=== PATIENT | female | born 1945 | race Caucasian/White ===

== ENCOUNTER 2019-07-13 08:58 | Day surgery (SDC) | payer OTHER, MEDICARE ==
--- NOTE | 2019-07-13 08:54 | EKG ---
Test Date: 2019-07-13 Test Time: 08:29:16 Mobile Home Set Up Person: CARIN MEASUREMENT RESULTS: Intervals: Rate: 64 [place]: 194 QRSD: 142 QT: 462 QTc: 476 [place]: P: 48 AZ: 194 QRS: 5 T: 142 INTERPRETIVE STATEMENTS: Normal sinus rhythm Left bundle branch block Abnormal ECG Compared to ECG 11/10/1992 07:49:00 Left bundle branch block is now present Electronically Signed On 07-13-19 08:53:40 CDT by Cornelius Murphy
[2019-07-13] MEDS ORDERED: CEFAZOLIN/SWI 1gm 1 GM/10 ML SYR ONE (09:23)
[2019-07-13] MEDS ORDERED: Ringers Lactate 1,000 ML IV ONE (09:23)
--- NOTE | 2019-07-13 09:25 | RAD REPORT ---
EXAM DESCRIPTION: Twan Perales (2 Views)07/13/2019 8:59 am CLINICAL HISTORY: Preop to removed mass from left arm and right knee COMPARISON: 2016 FINDINGS: The lungs appear clear of acute infiltrate. The heart is mildly enlarged. The aorta is tortuous/ectatic IMPRESSION: No acute abnormalities displayed
[2019-07-13 09:41] LABS: Absolute Lymphocytes (CBC) 1.4 K/uL (0.7-4.9); Hematocrit 39.8 % (36.0-45.0); Lymphocytes % 29.5 % (15.3-44.8); MPV 7.1 fL (7.6-11.3); RBC Red Blood Cell Count 4.41 M/uL (3.86-4.86)
[2019-07-13] MEDS ORDERED: MIDAZOLAM HCL 2 MG/2 ML INJ ONE (09:48)
[2019-07-13 09:49] LABS: Potassium 4.1 mmol/L (3.5-5.1)
[2019-07-13] MEDS ORDERED: LIDOCAINE 1% 20 ML MDV ONE (10:19)
[2019-07-13] MEDS ORDERED: BUPIVACAINE 0.5% PF 10 ML VIAL ONE (10:19)
[2019-07-13] MEDS ORDERED: FENTANYL CITR 100 MCG/2 ML ONE (10:21)
[2019-07-13] MEDS ORDERED: LIDOCAINE 2% MPF 5 ML VIAL ONE (10:21)
[2019-07-13] MEDS ORDERED: PROPOFOL 200 MG/20 ML VIAL IV ONE (10:21)
[2019-07-13] MEDS ORDERED: EPHEDRINE SULF 50 MG/ML VIAL ONE (11:42)
[2019-07-13 13:04] VITALS: TEMP 97.2
[2019-07-13 13:44] VITALS: BP 136/64; O2SAT 100
--- NOTE | 2019-07-13 21:20 | OP ---
Date of Procedure: 07/13/2019 Surgeon: Ramon España MD Bulk Plant Manager: MAKENZIE Woods. Preoperative Diagnosis: Left arm mass and right knee mass. Postoperative Diagnosis: Left arm mass and right knee mass. Procedures: 1.Wide excision of left arm mass 5 x 3 cm, with layered closure. Length of closure 5 cm. 2.Wide excision of right knee mass 3 x 1 cm with layered closure. Length of closure 3 cm. Estimated Blood Loss: Minimal. Specimens: Left arm mass and right knee mass. Findings: Margins free. Anesthesia: General. Complications: None. Disposition: Patient tolerated the procedure in stable condition and taken to Recovery in good gener al condition. Procedure In Detail: Patient was brought to the OR and placed in supine position. General anesthesi a was begun. Patient was prepped and draped in the usual sterile fashion. Marcaine 0.5% was infiltr ated locally. A 15-blade was used to make a 5 x 3 cm incision on the left arm starting a 2.5 cm pleo morphic raised lesion. Subcutaneous tissue was divided and entire mass was excised and sent to Patho logy after being labeled appropriately. Wound irrigated, bleeding controlled with cautery. Flaps cr eated with 3-0 chromic used for subcutaneous tissue and 4-0 nylon used to close the skin. Sterile dr essing was applied. Right knee 3 x 1 cm incision was made over this 0.7 size cm raised mass pleomorp hic in nature. Subcutaneous tissue was divided, entire mass was excised and labeled appropriately an d sent to Pathology for frozen section. Margins free on both places and then flaps created, 3-0 lunchroom operator mitchell used for subcutaneous tissue and 4-0 nylon used to close the skin. Sterile dressing was applied. Patient was awakened and taken to Recovery in good general condition. Discharge Note: Patient will go to Day Surgery, then home when stable. Disposition: Home. Condition: Stable. Discharge Instructions: Resume home medications and diet. Activity as tolerated. No heavy lifting. Remove outer dressing in 2 days. Shower. Keep wound clean and dry. Follow up in my office in 1 w enterprise. Call for appointment. Tylenol No. 3 one tablet p.o. q.4 p.r.n. pain. /MODL Voice ID: [id number] Report ID: [id number]
== END 2019-07-13 13:53 | disposition home or self-care (01) ==
LOC: OR 08:58
PROVIDERS: ATTEND Surgery
PROC: 0JBF0ZZ Excision of Left Upper Arm Subcutaneous Tissue and Fascia, Open Approach (ICD-10-PCS; principal; 2019-07-13 10:00)
PROC: 0JBN0ZZ Excision of Right Lower Leg Subcutaneous Tissue and Fascia, Open Approach (ICD-10-PCS; 2019-07-13 10:00)
DX: R22.32 Localized swelling, mass and lump, left upper limb (principal); R22.41 Localized swelling, mass and lump, right lower limb; L82.0 Inflamed seborrheic keratosis; L57.0 Actinic keratosis; L57.8 Other skin changes due to chronic exposure to nonionizing radiation; E07.9 Disorder of thyroid, unspecified; K21.9 Gastro-esophageal reflux disease without esophagitis; M19.90 Unspecified osteoarthritis, unspecified site; Z82.49 Family history of ischemic heart disease and other diseases of the circulatory system
CPT/HCPCS: 11406; 11403; 93005; 85025; 80048; 36415; 88331; 88332; 88305; 71046; J2704; J2250; J3010; J0690; J7120

== ENCOUNTER 2019-08-31 09:45 | Day surgery (SDC) | payer OTHER, MEDICARE ==
--- OUTSIDE RECORDS SUMMARY | 2019-08-31 09:49 | XMS REPORT ---
:1945 Author Organization e[employer] Care Team Providers Name Role Phone Nabil Serrano Provider Role Unavailable Allergies, Adverse Reactions, Alerts Substance Reaction Event Type N.K.D.A. 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 Medications Medication Code Code Instructions Start End Status Dosage System Date Date Simvastatin [facility] 99920946211 20 MG Oral Active not defined Levothyroxine [facility] 55848888027 25 MCG Oral Active not Sodium defined Restasis [facility] 95104274505 0.05 % Active not Ophthalmic defined Paroxetine HCl [facility] 33154840277 10 MG Oral Active not defined Pantoprazole [facility] 26558922834 40 MG Orally May 05, Active 1 tablet Sodium Once a day 2017 Ranitidine HCl in [facility] 0 May 05, Active not NaCl 2018 defined Results No Known Results Summary Purpose eClinicalWorks Submission
[2019-08-31] MEDS ORDERED: Zoledronic Acid/Mannitol/Water 5 MG/100 ML INFUS.BOT IV ONE (10:00)
[2019-08-31 11:50] VITALS: BP 132/57; TEMP 97.3; O2SAT 95
[2019-08-31 11:55] VITALS: BMI 27.4
== END 2019-08-31 11:36 | disposition home or self-care (01) ==
LOC: DS 09:45
PROVIDERS: ATTEND Internal Medicine
DX: M81.0 Age-related osteoporosis without current pathological fracture (principal); R13.10 Dysphagia, unspecified
CPT/HCPCS: 96365; J3489

== ENCOUNTER 2023-03-28 19:28 | Observation (INO) | payer OTHER, MEDICARE ==
--- OUTSIDE RECORDS SUMMARY | 2023-03-28 19:31 | XMS REPORT | Continuity of Care Document ---
:1945 Author Organization [facility] t Address [address] [place] [address] Care Team Providers Name Role Phone Wai Thompson MD Primary Care Physician Wai Thompson Attending Clinician Unavailable Wai Thompson Admitting Clinician Unavailable Payers Payer Name Policy Type Policy Number Effective Date Expiration Date Britni farah [place] [id number] [facility] MEDICARE MB [id number] [facility] NOVITAS - [facility] Problems Condition Condition Condition Status Onset Resolution Last Treating Co mments Source Name Details Category Date Date Treatment Clinician Date [id number] Status Problem Commo n 105 post total [facility] right knee - [facility] replacemen [facility] [id number] Primary Problem 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 Social History Social Habit Start Date Stop Date Quantity Comments Source History of Tobacco [facility] - Use [facility] Gender identity [facility] Sexual orientation Method [facility] Sex Assigned At [birth year] [facility] 00:00:00 00:00:00 Smoking Status Start Date Stop Date Source Tobacco smoking consumption Meth [facility] unknown Never Smoker [facility] Medications Ordered Filled Start Stop Current Ordering Indication Dosage Frequency Signature Comments Components Source Medication Medication Date Date Medication? Clinician (SIG) Name Name Ranitidine Ranitidine Yes Nabil not Common HCl in NaCl HCl in NaCl 05-05 Serrano defined Spirit 00:00: - [facility] Pantoprazol Pantoprazol Yes Nabil 1 tablet Common e Sodium e Sodium 05-05 Serrano [facility] 00:00: [facility] Levothyroxi Levothyroxi Yes Nabil not Common ne Sodium ne Sodium [facility] Sim[facility] Simvastatin Yes Nabil not Common Serrano defined [facility] Restasis Restasis Yes Nabil not Comm on Serrano [facility] Paroxetine Paroxetine Yes Nabil not Common HCl HCl Serrano defined [facility] Famotidine Famotidine Yes Nabil not Common Serrano defined [facility] Esomeprazol Esomeprazol Yes Nabil not Common e Magnesium e Magnesium Serrano defined [facility] Acetaminoph Acetaminoph Yes Nabil not Common en-Codeine en-Codeine Serrano defined Spirit #3 #3 [facility] Shingrix Shingrix Yes Nabil not Comm on Serrano defined [facility] Amoxicillin Amoxicillin Yes Nabil not Common Serrano defined [facility] Acetaminoph Acetaminoph No Acetaminop en-Codeine en-Codeine hen-Codein #3 #3 e #3 Levothyroxi Levothyroxi No Levothyrox ne Sodium ne Sodium ine Sodium 25 MCG 25 MCG 25 MCG Restasis Restasis No Restasis 0.05 % 0.05 % 0.05 % PARoxetine PARoxetine No PARoxetine HCl 10 MG HCl 10 MG HCl 10 MG Esomeprazol Esomeprazol No Esomeprazo e Magnesium e Magnesium le Magnesium Amoxicillin Amoxicillin No Amoxicilli n Simvastatin Simvastatin No Simvastati 20 MG 20 MG n 20 MG Famotidine Famotidine No Famotidine Pantoprazol Pantoprazol No 1{table QD Pantoprazo e Sodium 40 e Sodium 40 t} le Sodium MG MG 40 MG Ranitidine Ranitidine No Ranitidine HCl in NaCl HCl in NaCl HCl in NaCl Shingrix Shingrix No Shingrix Fish Oil Fish Oil No Fish Oil Shingrix Shingrix No Shingrix Pantoprazol Pantoprazol No 1{table QD Pantoprazo e Sodium 40 e Sodium 40 t} le Sodium MG MG 40 MG Esomeprazol Esomeprazol No Esomeprazo e Magnesium e Magnesium le Magnesium Amoxicillin Amoxicillin No Amoxicilli n Levothyroxi Levothyroxi No Levothyrox ne Sodium ne Sodium ine Sodium 25 MCG 25 MCG 25 MCG Magnesium Magnesium No Magnesium Famotidine Famotidine No Famotidine Ranitidine Ranitidine No Ranitidine HCl in NaCl HCl in NaCl HCl in NaCl Vitamin B12 Vitamin B12 No Vitamin B12 B Complete B Complete No B Complete PARoxetine PARoxetine No PARoxetine HCl 10 MG HCl 10 MG HCl 10 MG Probiotic Probiotic No Probiotic Simvastatin Simvastatin No Simvastati 20 MG 20 MG n 20 MG Restasis Restasis No Restasis 0.05 % 0.05 % 0.05 % Acetaminoph Acetaminoph No Acetaminop en-Codeine en-Codeine hen-Codein #3 #3 e #3 Calcium Calcium No Calcium Vital Signs Vital Name Observation Time Observation Value Comments Source height 2022-07-17 11:00:00 63 [in_i] [facility] weight 2022-07-17 11:00:00 160.3 [lb_av] [facility] temperature 2022-07-17 11:00:00 97.7 [degF] [facility] bmi 2022-07-17 11:00:00 28.39 kg/m2 [facility] blood pressure 2022-07-17 11:00:00 132 mm[Hg] [facility] - systolic [facility] blood pressure 2022-07-17 11:00:00 80 mm[Hg] [facility] - diastolic [facility] height 2021-06-29 14:00:00 63 [in_i] [facility] weight 2021-06-29 14:00:00 157.5 [lb_av] [facility] temperature 2021-06-29 14:00:00 97.3 [degF] [facility] - [facility] bmi 2021-06-29 14:00:00 27.9 kg/m2 [facility] - [facility] blood pressure 2021-06-29 14:00:00 128 mm[Hg] [facility] - systolic [facility] blood pressure 2021-06-29 14:00:00 80 mm[Hg] [facility] - diastolic [facility] Procedures This patient has no known procedures. Plan of Care Planned Activity Planned Date Details Comments Source Future Scheduled 2023-03-[address] [facility] Test 09:28:58 [code = INFLUENZA VACCINE] Future Scheduled 2023-03-11 Hepatitis C screening [facility] Test 09:28:58 (procedure) [code = [id number]] Future Scheduled 2023-03-11 SHINGLES VACCINES (1 Met [facility] Test 09:28:58 of 2) [code = SHINGLES VACCINES (1 of 2)] Future Scheduled 2023-03-11 65+ PNEUMOCOCCAL Methodi [facility] Test 09:28:58 VACCINE (1 - PCV) [code = 65+ PNEUMOCOCCAL VACCINE (1 - PCV)] Future Scheduled 2023-03-11 COVID-19 VACCINE (3 - [facility] Test 09:28:58 Moderna series) [code = COVID-19 VACCINE (3 - Moderna series)] Encounters Start End Encounter Admission Attending Care Care Encounter Source Date/Time Date/Time Type Type Clinicians Facility Department ID 2022-07-17 [facility] [id number] Common 11:22:[address] [facility] 2022-07-02 [facility] [id number] Common 09:59:[address] [facility] 2021-10-18 [facility] [id number] Common 14:12:50 Wai [id number] [facility] 2021-10-18 [facility] [id number] Common 13:58:10 Wai [id number] [facility] 2021-10-18 Outpatient Donna, [facility] ST[facility] [id number] Common 13:52:38 Wai [id number] [facility] 2021-10-18 Outpatient Donna, STLMLC STL[facility] [id number] Common 11:41:18 Wai [id number] [facility] 2022-07-17 2022-07-17 OFFICE STLMLC ST[facility]C [id number] Co mmon 00:00:00 00:00:00 VISIT Spirit ESTAB PT - [facility] LEVEL 4 [facility] 2021-08-14 2021-08-14 Outpatient DONNA, [facility] [id number] 00:00:00 00:00:00 WAI 241 Method i 2021-08-14 2021-08-14 Outpatient DONNA, [facility] [id number] 00:00:00 00:00:00 WAI 243 Method i 2021-06-29 2021-06-29 OFFICE STLMLC STL[facility]C [id number] Co mmon 00:00:00 00:00:00 VISIT Spirit ESTAB PT - [facility] LEVEL 4 [facility] 2020-05-03 2020-05-03 Outpatient [facility] [id number] Common 08:00:00 08:00:00 [facility] 2019-05-04 2019-05-04 Out[facility] [id number] Common 08:00:00 08:00:00 t [facility] Sp[facility] and [facility] 2018-05-05 2018-05-05 Out[facility] [id number] Common 08:00:00 08:00:00 t [facility] Sp[facility] t and [facility] Results This patient has no known results.
[2023-03-28] MEDS ORDERED: NA CHLORIDE 0.9% 1,000 ML ONE (20:24)
[2023-03-28 20:27] LABS: Absolute Lymphocytes (CBC) 2.9 K/uL (0.7-4.9); Hematocrit 40.1 % (36.0-45.0); Lymphocytes % 40.1 % (15.3-44.8); MCV 90.9 fL (80-100); MPV 6.5 fL (7.6-11.3); RBC Red Blood Cell Count 4.42 M/uL (3.86-4.86)
[2023-03-28 20:37] LABS: Troponin High Sensitivity 8.8 pg/mL (<58.9)
[2023-03-28 20:38] LABS: ALT/SGPT 16 U/L (13-56); AST/SGOT 15 U/L (15-37); Albumin 3.2 g/dL (3.4-5.0); Alkaline Phosphatase 70 U/L (45-117); Bilirubin Total 0.2 mg/dL (0.2-1.0); Protein, Total 6.2 g/dL (6.4-8.2)
[2023-03-28 20:39] LABS: Bilirubin Direct < 0.1 mg/dL (0-0.2); Bilirubin Indirect, Calculated ND mg/dL (0.2-0.8)
--- NOTE | 2023-03-28 21:25 | RAD REPORT ---
EXAM DESCRIPTION: Twan Single View03/28/2023 8:47 pm CLINICAL HISTORY: CHEST PAIN COMPARISON: Chest Pa And Lat (2 Views) dated 07/13/2019; Chest Pa And Lat (2 Views) dated 03/22/2016; CHEST PA AND LAT 2 VIEW dated 12/31/2013 TECHNIQUE: Portable AP view of the chest. FINDINGS: The lungs are clear. No pneumothorax or effusion. The cardiomediastinal contours are unch anged, with stable mediastinal prominence, likely aortic tortuosity. IMPRESSION: No acute cardiopulmonary process. Stable mediastinal prominence.
--- NOTE | 2023-03-28 22:13 | RAD REPORT ---
EXAM DESCRIPTION: CT - Angio Aorta For Dissection - 03/28/2023 9:47 pm CLINICAL HISTORY: atypical chest pain COMPARISON: Chest Single View dated 03/28/2023 TECHNIQUE: Dynamically enhanced 3 mm thick images of the chest, abdomen, and upper pelvis were obtai dorothy during administration of approximately 125mL Isovue 370 IV contrast. Sagittal and coronal reconst ructions as well as maximal intensity projection reconstruction were generated and reviewed per an [facility] angiography protocol. All CT scans are performed using dose optimization technique as appropriate and may include automated exposure control or mA/KV adjustment according to patient size. FINDINGS: Aorta is normal in diameter with no dissection or other acute aortic findings. Tortuosity of the thoracic aorta, and fusiform aneurysmal dilation of the ascending aorta measuring 4.3 centimet er in greatest caliber, both contribute to the appearance of mediastinal prominence on recent radiogr aph. Mild atherosclerotic calcifications throughout the abdominal aorta. Reconstruction images show n o other significant findings. Pulmonary arteries are normal as well. No infiltrate in the lung parenchyma. Medial right basal pleural based 2.3 x 2.0 centimeter nodule. N o pleural thickening, pleural effusion or pneumothorax. No abnormal mediastinal or hilar mass or lymphadenopathy seen. No chest wall mass or abnormal axillar y lymphadenopathy. Celiac, SMA and renal arteries show no suspicious findings. Solid abdominal viscera and bowel show no significant findings. No mass or abnormal lymphadenopathy. Status post cholecystectomy. Colonic dive rticulosis. Long segment wall thickening throughout the sigmoid colon, may relate to nondistention, o r sequelae of prior attacks of diverticulitis. IMPRESSION: No acute abnormalities on CT angiogram of the aorta. Tortuosity of the thoracic aorta, and fusiform aneurysmal dilation of the ascending aorta, up to 4.3 centimeter in greatest caliber. Right lower lobe pleural-based medial 2.3 centimeter nodule. This deserves short-term interval follow up CT at 3 months, or additional evaluation by PET-CT or soft tissue sampling, per Fleischner societ y 2017 criteria. Colonic diverticulosis and long segment wall thickening throughout the sigmoid colon, may relate to n ondistention or sequelae of prior text of diverticulitis.
--- NOTE | 2023-03-28 22:57 | ER ---
Nurse's Notes [facility] Name: Alexandra Daniel Age: 77 yrs Sex: Female : 1945 Arrival Date: 03/28/2023 Time: 19:28 Bed 26 Private MD: Diagnosis: Angina pectoris, unspecified Presentation: 03/28 19:44 Chief complaint: Patient states: sharp chest pain 30 min [employer]. never felt before. slowly lg3 easing up but has not gone away yes. pain radiates entire chest and back. complaints of headache. Coronavirus screen: Client denies travel out of the [place] in the last 14 days. At this time, the client does not indicate any symptoms associated with coronavirus-19. Ebola Screen: No symptoms or risks identified at this time. Initial Sepsis Screen: Does the patient meet any 2 criteria? No. Patient's initial sepsis screen is negative. Does the patient have a suspected source of infection? No. Patient's initial sepsis screen is negative. Risk Assessment: Do you want to hurt yourself or someone else? Patient reports no desire to harm self or others. Onset of symptoms was March 28, 2023. 19:44 Method Of Arrival: Wheelchair lg3 19:44 Acuity: CARLEEN 3 lg3 Triage Assessment: 19:47 General: Appears in no apparent distress. comfortable, Behavior is calm, cooperative. lg3 Pain: Complains of pain in chest Pain radiates to back. EENT: No deficits noted. No signs and/or symptoms were reported regarding the EENT system. Neuro: No deficits noted. Benites Agitation-Sedation Scale (RASS): 0 - Alert and Calm Level of Consciousness is awake, alert, obeys commands, Oriented to person, place, time, situation. Cardiovascular: Reports chest pain, lightheadedness, palpitations, Capillary refill < 3 seconds Clubbing of nail beds is absent JVD is absent Patient's skin is warm and dry. Respiratory: No deficits noted. Airway is patent Respiratory effort is even, unlabored, Respiratory pattern is regular, symmetrical. GI: No deficits noted. No signs and/or symptoms were reported involving the gastrointestinal system. : No deficits noted. No signs and/or symptoms were reported regarding the genitourinary system. Derm: No deficits noted. No signs and/or symptoms reported regarding the dermatologic system. Skin is intact, is healthy with good turgor, Skin is dry, Skin is normal, Skin temperature is warm. Musculoskeletal: No deficits noted. No signs and/or symptoms reported regarding the musculoskeletal system. Circulation, motion, and sensation intact. Range of motion: intact in all extremities. Historical: - Allergies: 19:47 No Known Allergies; lg3 - PMHx: 19:47 high cholestrol; gerd; hypoglycemia; ciliac disease; lg3 - PSHx: 19:47 Cholecystectomy; Appendectomy; right knee; right shoulder; Lumpectomy of breast; lg3 Tonsillectomy; - Immunization history:: Adult Immunizations up to date, Client reports receiving the 2nd dose of the Covid vaccine, Flu vaccine is up to date. - Social history:: Smoking status: Patient denies any tobacco usage or history of. Patient/guardian denies using alcohol, street drugs. - Family history:: not pertinent. Screenin:22 [facility] ED Fall Risk Assessment (Adult) History of falling in the last 3 months, cm10 including since admission No falls in past 3 months (0 pts) Confusion or Disorientation No (0 pts) Intoxicated or Sedated No (0 pts) Impaired Gait Yes (1 pt) Mobility Assist Device Used Yes (1 pt) Altered Elimination No (0 pt) Score/Fall Risk Level 0 - 2 = Low Risk Oriented to surroundings, Maintained a safe environment, Hourly rounding (assess needs \\T\\ fall precautionary measures) done, Used ambulatory aids as needed (educated on \\T\\ assisted with). Abuse screen: Denies threats or abuse. Denies injuries from another. Nutritional screening: No deficits noted. Tuberculosis screening: No symptoms or risk factors identified. Assessment: 20:20 General: Appears in no apparent distress. comfortable, Behavior is calm, cooperative. cm10 Pain: Complains of pain in chest Pain radiates to back Pain currently is 5 out of 10 on a pain scale. Quality of pain is described as "felt like I got punched in the chest" Pain began suddenly. Neuro: No deficits noted. Level of Consciousness is awake, alert, Oriented to person, place, time, situation. Cardiovascular: No deficits noted. Capillary refill < 3 seconds Rhythm is sinus bradycardia. Respiratory: No deficits noted. Airway is patent Respiratory effort is even, unlabored, Respiratory pattern is regular, symmetrical. GI: No deficits noted. : No deficits noted. Derm: No deficits noted. Skin is intact, Skin is pink, warm \\T\\ dry. 21:08 Reassessment: Patient and/or family updated on plan of care and expected duration. Pain cm10 level reassessed. Patient is alert, oriented x 3, equal unlabored respirations, skin warm/dry/pink. Pt states that she is only having chest pain when she takes a deep breath. Patient states feeling better. Patient states symptoms have improved. 23:54 Reassessment: No changes from previously documented assessment. Patient and/or family cm10 updated on plan of care and expected duration. Pain level reassessed. Patient is alert, oriented x 3, equal unlabored respirations, skin warm/dry/pink. Vital Signs: 19:44 BP 140 / 66; Pulse 62; Resp 18 S; Temp 97.9(O); Pulse Ox 98% on R/A; Weight 71.67 kg lg3 (R); Height 5 ft. 3 in. (R); Pain 6/10; 21:00 BP 159 / 70; Pulse 54; Resp 16; Pulse Ox 100% on R/A; cm10 21:30 BP 161 / 73; Pulse 54; Resp 16 S; Pulse Ox 99% on R/A; cm10 22:00 BP 158 / 75 LA Sitting (auto/reg); Pulse 59 MON; Resp 16 S; Pulse Ox 99% on R/A; cm10 23:00 BP 166 / 71; Pulse 60; Resp 16; Pulse Ox 98% on R/A; cm10 23:30 BP 162 / 68; Pulse 59; Resp 16; Pulse Ox 98% on R/A; cm10 03/29 00:59 BP 159 / 91; Pulse 61; Resp 15 S; Pulse Ox 99% on R/A; as6 03/28 19:44 Body Mass Index 27.99 (71.67 kg, 160.02 cm) lg3 03/28 19:44 Pain Scale: Adult lg3 ED Course: 03/28 19:41 Patient arrived in ED. jj6 19:47 Triage completed. lg3 19:47 Arm band placed on left wrist. lg3 19:52 Nano Candelaria RN is Primary Nurse. cm10 20:02 Roly Jon MD is Attending Physician. sp4 20:03 Initial lab(s) drawn, by me, sent to lab. Inserted saline lock: 18 gauge in right cm10 wrist, using aseptic technique. Blood collected. 20:09 Basic Metabolic Panel Sent. cm10 20:09 CBC with Diff Sent. cm10 20:09 Troponin HS Sent. cm10 20:22 Patient has correct armband on for positive identification. Placed in gown. Bed in low cm10 position. Call light in reach. Side rails up X2. Client placed on continuous cardiac and pulse oximetry monitoring. NIBP monitoring applied. Door closed. Warm blanket given. 20:23 Patient maintains SpO2 saturation greater than 95% on room air. cm10 20:48 XRAY Chest (1 view) In Process Unspecified. EDMS 21:49 CT Aorta for Dissection In Process Unspecified. EDMS 22:56 Nir Thompson MD is Hospitalizing Provider. sp4 23:14 Troponin High Sensitivity Sent. cm10 03/29 00:58 Juan Lal, RN is Primary Nurse. as6 00:58 No provider procedures requiring assistance completed. Patient admitted, IV remains in as6 place. Administered Medications: 03/28 20:19 Drug: NS 0.9% IV 1000 ml Route: IV; Rate: 125 ml/hr; Site: right wrist; cm10 /07 04:20 Drug: amiodarone PO 400 mg Route: PO; cr4 Medication: 03/28 20:21 VIS not applicable for this client. cm10 Outcome: 22:57 Decision to Hospitalize by Provider. sp4 03/29 00:58 Admitted to ER Hold. Please see [facility] for further documentation. as6 Condition: stable Instructed on the need for admit. 12:59 Patient left the ED. ll1 Signatures: Dispatcher [employer] EDMS Eleanor Gmabino, RN RN cr4 Joellen Matos RN RN lg3 David Black RN RN ll1 Lidia Christianson6 Juan Lal, JOSE mason6 Roly Jon MD MD sp4 Nano Candelaria RN RN 10
--- NOTE | 2023-03-28 22:57 | EDPHYS ---
Physician Documentation [facility] Name: Alexandra Daniel Age: 77 yrs Sex: Female : 1945 Arrival Date: 03/28/2023 Time: 19:28 Bed 26 Private MD: ED Physician Roly Jon HPI: 03/28 20:02 This 77 yrs old Female presents to ER via Wheelchair with complaints of Chest sp4 Pain, Headache. 20:29 77-year-old female with history of left bundle branch block, GERD, sp4 hypercholesterolemia, celiac disease presents as a walk-in with atypical midsternal sharp nonexertional chest pain with radiation to the back. Pain is intermittent. Patient declined any pain medicine on arrival. Patient states she has associated headache. . Historical: - Allergies: 19:47 No Known Allergies; lg3 - PMHx: 19:47 high cholestrol; gerd; hypoglycemia; ciliac disease; lg3 - PSHx: 19:47 Cholecystectomy; Appendectomy; right knee; right shoulder; Lumpectomy of breast; lg3 Tonsillectomy; - Immunization history:: Adult Immunizations up to date, Client reports receiving the 2nd dose of the Covid vaccine, Flu vaccine is up to date. - Social history:: Smoking status: Patient denies any tobacco usage or history of. Patient/guardian denies using alcohol, street drugs. - Family history:: not pertinent. ROS: 20:29 Constitutional: Negative for fever, chills, and weight loss, Eyes: Negative for injury, sp4 pain, redness, and discharge, ENT: Negative for injury, pain, and discharge, Neck: Negative for injury, pain, and swelling, Cardiovascular: Negative for palpitations, and edema, positive for chest pain Respiratory: Negative for shortness of breath, cough, wheezing, and pleuritic chest pain, Abdomen/GI: Negative for abdominal pain, nausea, vomiting, diarrhea, and constipation, Back: Negative for injury and pain, : Negative for injury, bleeding, discharge, and swelling, MS/Extremity: Negative for injury and deformity, Skin: Negative for injury, rash, and discoloration, Neuro: Negative for weakness, numbness, tingling, and seizure, positive for headache Psych: Negative for depression, anxiety, Allergy/Immunology: Negative for hives, rash, and allergies Endocrine: Negative for neck swelling, polydipsia, polyuria, polyphagia, and weight changes Hematologic/Lymphatic: Negative for swollen nodes, abnormal bleeding, and unusual bruising Exam: 20:29 Constitutional: This is a well developed, well nourished patient who is awake, alert, sp4 and in no acute distress. Head/Face: Normocephalic, atraumatic. Eyes: Pupils equal round and reactive to light, extra-ocular motions intact. Lids and lashes normal. Conjunctiva and sclera are not injected. Cornea within normal limits. Periorbital areas with no swelling, redness, or edema. ENT: Nares patent. No nasal discharge, no septal abnormalities noted. Tympanic membranes are normal and external auditory canals are clear. Oropharynx with no redness, swelling, or masses, exudates, or evidence of obstruction, uvula midline. Mucous membranes moist. Neck: Trachea midline, no thyromegaly or masses palpated, and no cervical lymphadenopathy. Supple, full range of motion without nuchal rigidity, or vertebral point tenderness. Chest/axilla: Normal chest wall appearance and motion. Nontender with no deformity. No lesions are appreciated. Cardiovascular: Regular rate and rhythm with a normal S1 and S2. No gallops, murmurs, or rubs. Normal PMI, no JVD. No pulse deficits. Respiratory: Lungs have equal breath sounds bilaterally, clear to auscultation and percussion. No rales, rhonchi or wheezes noted. No increased work of breathing, no retractions or nasal flaring. Abdomen/GI: Soft, non-tender, with normal bowel sounds. No distension or tympany. No guarding or rebound. No evidence of tenderness throughout. Back: No spinal tenderness. No costovertebral tenderness. Skin: Warm, dry with normal turgor. Normal color with no rashes, no lesions, and no evidence of cellulitis. MS/ Extremity: Pulses equal, no cyanosis. Neurovascular intact. Full, normal range of motion. Neuro: Awake and alert, GCS 15, oriented to person, place, time, and situation. Cranial nerves II-XII grossly intact. Motor strength 5/5 in all extremities. Sensory grossly intact. Psych: Awake, alert, with orientation to person, place and time. Behavior, mood, and affect are within normal limits 22:58 ECG was reviewed by the Attending Physician. EKG time 1950 bilateral is normal sinus sp4 rhythm at the rate of 61, left bundle branch block, left axis deviation, negative STEMI based on Sgarbossa criteria Vital Signs: 19:44 BP 140 / 66; Pulse 62; Resp 18 S; Temp 97.9(O); Pulse Ox 98% on R/A; Weight 71.67 kg lg3 (R); Height 5 ft. 3 in. (R); Pain 6/10; 21:00 BP 159 / 70; Pulse 54; Resp 16; Pulse Ox 100% on R/A; cm10 21:30 BP 161 / 73; Pulse 54; Resp 16 S; Pulse Ox 99% on R/A; cm10 22:00 BP 158 / 75 LA Sitting (auto/reg); Pulse 59 MON; Resp 16 S; Pulse Ox 99% on R/A; cm10 23:00 BP 166 / 71; Pulse 60; Resp 16; Pulse Ox 98% on R/A; cm10 23:30 BP 162 / 68; Pulse 59; Resp 16; Pulse Ox 98% on R/A; cm10 03/29 00:59 BP 159 / 91; Pulse 61; Resp 15 S; Pulse Ox 99% on R/A; as6 03/28 19:44 Body Mass Index 27.99 (71.67 kg, 160.02 cm) lg3 03/28 19:44 Pain Scale: Adult lg3 MDM: 03/28 20:09 Patient medically screened. sp4 22:53 HEART Score: History: Moderately Suspicious (1), ECG: Non specific repolarization sp4 disturbance / LBTB / PM (1), Age: > or = 65 years (2), Risk Factors: 1 or 2 risk factors (1), Troponin: < or = 1 x Normal Limit (0), Total Score = 5. The patient was given aspirin in the Emergency Department. Data reviewed: vital signs, nurses notes, lab test result(s), cardiac enzymes, CBC, electrolytes, hepatic panel, EKG, radiologic studies, CT scan, plain films. Consideration of Admission/Observation Patient was admitted/placed on observation. Escalation of care including admission/observation considered. Management of patient was discussed with the following: Hospitalist: Dr. Thompson. Good Humor Vendor: Mayuri WATKINS . ED course: CT chest reveals no acute findings although it does reveal a thoracic aortic aneurysm without signs of dissection.. 22:56 ED course: IMPRESSION: No acute abnormalities on CT angiogram of the aorta. Tortuosity sp4 of the thoracic aorta, and fusiform aneurysmal dilation of the ascending aorta, up to 4.3 centimeter in greatest caliber. Right lower lobe pleural-based medial 2.3 centimeter nodule. This deserves short-term interval follow up CT at 3 months, or additional evaluation by PET-CT or soft tissue sampling, per Fleischner society 2017 criteria. Colonic diverticulosis and long segment wall thickening throughout the sigmoid colon, may relate to non distention or sequelae of prior text of diverticulitis. . 03/28 20:02 Order name: Basic Metabolic Panel; Complete Time: 21:26 pf1 03/28 20:02 Order name: CBC with Diff; Complete Time: 21:26 pf1 03/28 20:02 Order name: Troponin HS; Complete Time: 21:26 pf1 03/28 20:10 Order name: LFT's; Complete Time: 21:26 sp4 03/28 22:57 Order name: Troponin High Sensitivity sp4 03/28 23:41 Order name: Troponin High Sensitivity EDMS 03/29 05:45 Order name: Troponin High Sensitivity EDMS 03/29 05:50 Order name: Basic Metabolic Panel EDMS 03/28 20:02 Order name: XRAY Chest (1 view); Complete Time: 21:52 pf1 03/28 20:10 Order name: CT Aorta for Dissection; Complete Time: 22:14 sp4 03/28 20:02 Order name: EKG; Complete Time: 20:02 pf1 03/28 19:59 Order name: Cardiac monitoring; Complete Time: 20:00 cm10 03/28 19:59 Order name: EKG - Nurse/Tech; Complete Time: 20:00 cm10 03/28 19:59 Order name: IV Saline Lock; Complete Time: 20:00 cm10 03/28 19:59 Order name: Labs collected and sent; Complete Time: 20:00 cm10 03/28 19:59 Order name: O2 Per Protocol; Complete Time: 20:00 cm10 03/28 19:59 Order name: O2 Sat Monitoring; Complete Time: 20:00 cm10 EC:58 Rate is 61 beats/min. Rhythm is regular, Sinus Rhythm. Left axis deviation noted. AR sp4 interval is normal. No ST changes noted. Clinical impression: No evidence of ischemia. Interpreted by me. Administered Medications: 20:19 Drug: NS 0.9% IV 1000 ml Route: IV; Rate: 125 ml/hr; Site: right wrist; cm10 03/29 04:20 Drug: amiodarone PO 400 mg Route: PO; cr4 Disposition Summary: 03/28/23 22:57 Hospitalization Ordered Hospitalization Status: Observation sp4 Provider: Nir Thompson sp4 Condition: Stable sp4 Problem: new sp4 Symptoms: are unchanged sp4 Bed/Room Type: Standard sp4 Location: Telemetry/MedSurg (observation)(03/29/23 11:49) ja Room Assignment: [facility](03/29/23 12:18) ds4 Diagnosis - Angina pectoris, unspecified sp4 Forms: - Medication Reconciliation Form sp4 - SBAR form sp4 Signatures: Dispatcher [employer] EDMS Eleanor Gambino, RN RN cr4 Nitesh Flores ds4 Karen Barrera, RN RN Cullen Pitts RN RN ja1 Joellen Matos, RN RN leslie3 Roly Jon MD MD sp4 Nano Candelaria, RN RN cm10 Corrections: (The following items were deleted from the chart) 03/28 23:36 22:57 Telemetry/MedSurg (observation) sp4 23:36 22:57 sp4 03/29 11:49 03/28 23:36 [facility] ER HOLD [facility] 03/29 11:49 03/28 23:36 ERHOLD- [facility] 03/29 12:18 11:[address] [place] [address] ds4
[2023-03-29] MEDS ORDERED: ACETAMINOPHEN 500 MG TAB PO PRN (00:49)
[2023-03-29] MEDS ORDERED: AMIODARONE HCL 200 MG TAB ONE (04:21)
[2023-03-29 05:40] LABS: Potassium 4.1 mEq/L (3.5-5.1)
[2023-03-29 06:55] VITALS: BMI 27.9
[2023-03-29] MEDS ORDERED: ASPIRIN EC 81 MG TAB PO SCH (09:00)
[2023-03-29] MEDS ORDERED: ASPIRIN EC 81 MG TAB PO ONE (10:31)
[2023-03-29] MEDS ORDERED: ACETAMINOPHEN 325 MG TABLET PO PRN (12:45)
[2023-03-29 13:40] VITALS: BP 144/65; TEMP 98
[2023-03-29 15:14] VITALS: O2SAT 95
--- NOTE | 2023-03-29 15:38 | P.SSS ---
Patient History Date of Service: 03/29/23 Reason for admission: CHEST PAIN. History of Present Illness: ZULEIKA HAD CHEST PAIN SIDE TO SIDE FOR A FEW HOURS. SHE HAS NO NAUSEA, DIAPHORESIS ETC. SHE HAD NORMAL STRESS TEST A YEAR AGO. DR. SALAS WILL FU IN ONE WEEK TO DO ST TEST. SHE HAS ASYMPTOAMTIC TACHYCARDIA. THIS LOOKS LIKE PAT. I ORDERED METOPROLOL SMALL DOSE HR IS ALREADY LOW AT BASELINE. SHE IS STABLE TO GO HOME. Allergies No Known Allergies Allergy (Verified 03/29/23 07:40) Home Medications: Levothyroxine Sodium [Unithroid] 25 mcg PO DAILY 03/27/16 Simvastatin [Zocor*] 20 mg PO BEDTIME 03/27/16 Acetaminophen [Tylenol] 650 mg PO BIDP PRN 07/13/19 Acetaminophen/Diphenhydramine [Tylenol Pm Ex-Strength Caplet] 1 each PO BEDTIME 07/13/19 PARoxetine HCL [Paroxetine HCl] 20 mg PO DAILY 07/13/19 Atorvastatin Calcium [Lipitor*] 10 mg PO BEDTIME tab 03/29/23 Famotidine [Pepcid*] 20 mg PO DAILY 03/29/23 Metoprolol Succinate [Toprol Xl*] 12.5 mg PO DAILY #30 tab 03/29/23 - Past Medical/Surgical History Has patient received pneumonia vaccine in the past: Yes Diabetic: No -: Prolapsed bladder -: GERD -: BBB -: hypoglycemia -: Lactose intolerance -: OA -: Siliac dz -: lap tomer 1992 -: lumpectomy left breast 1992 -: right rotator cuff repair 2013 -: tonsils and appy as child - Family History Father -: Heart disease Notes: mother and sister with hypertension. Brother...poss liver disease - Social History Smoking Status: Never smoker Alcohol use: No CD- Drugs: No Caffeine use: Yes Place of Residence: Home Review of Systems 10-point ROS is otherwise unremarkable Physical Examination - Vital Signs Temperature: 98.0 F Blood Pressure: 144/65 Pulse: 74 Respirations: 18 Pulse Ox (%): 95 - Physical Exam General: Alert, In no apparent distress HEENT: Atraumatic, PERRLA, Mucous membr. moist/pink, EOMI, Sclerae nonicteric Neck: Supple, 2+ carotid pulse no bruit, No LAD, Without JVD or thyroid abnormality Respiratory: Clear to auscultation bilaterally, Normal air movement Cardiovascular: Regular rate/rhythm, Normal S1 S2 Gastrointestinal: Normal bowel sounds, No tenderness Musculoskeletal: No tenderness Integumentary: No rashes Neurological: Normal gait, Normal speech, Normal strength at 5/5 x4 extr, Normal tone, Normal affect Lymphatics: No axilla or inguinal lymphadenopathy - Studies Laboratory Data (last 24 hrs) 03/28/23 20:05: Total Bilirubin 0.2, AST 15, ALT 16, Alkaline Phosphatase 70 03/28/23 20:05: WBC 7.10, Hgb 13.4, Hct 40.1, Plt Count 385 03/28/23 20:05: Sodium 132 L, Potassium 4.0, BUN 17, Creatinine 0.64, Glucose 110 H - Diagnosis (Problem(s)) (1) Atypical chest pain Current Visit: Yes Status: Acute Plan: ST TEST OR CATH IN FUTURE DR. SALAS TO WORK ON . ASPIRIN 81 MG DAILY. (2) PAT (paroxysmal atrial tachycardia) Current Visit: Yes Status: Acute Plan: RECURRENT ASYSMPTOMATIC ON TELEM START SMALL DOSE B STAN. - Disposition Disposition: ROUTINE DISCHARGE Condition: FAIR
--- NOTE | 2023-03-29 18:15 | CON ---
Date of Consultation: 03/29/2023 Reason For Consultation: Chest pain. History Of Present Illness: This is a 77-year-old female with history of acid reflux, osteoarthritis , dyslipidemia, hypothyroidism, presented with chest pain. She was watching TV. She describes like she felt sudden pain like somebody punched her on the chest and remained sore for few hours. Denies having any exertional chest pain. No shortness of breath. No nausea, vomiting, or diaphoresis. Jenny fernandez had a stress test that was normal back in November of this year at my office. No exertional chest pain. Past Medical History: As outlined above in the HPI. Medications: Refer to reconciliation sheet for detailed list. Allergies: NO KNOWN DRUG ALLERGIES. Family History: No premature coronary artery disease or cancer. Social History: She does not smoke or drink. Does not use any drugs. Review of Systems: All systems were reviewed and they were negative except as mentioned in HPI. Physical Examination: Vital Signs: Reviewed. Head and Neck: Pupils are equal, reactive to light. Intact eye movements. No JVD. No cervical lym phadenopathy. Neck is supple. Thyroid is not enlarged. Lungs: Clear to auscultation bilaterally. No rhonchi, wheezing, or crackles. No accessory muscle u se. Heart: Regular rate and rhythm. No extra sounds. Abdomen: Soft, nontender. Bowel sounds positive. No organomegaly. No masses or hernia. No rigidi ty or rebound. Extremities: No edema, clubbing, or cyanosis. Intact pulses. Skin: No rash. Neuro: Alert, awake, oriented x3. No acute focal deficits appreciated. Investigations: Troponins x3 are negative. BUN 10, creatinine 0.56, and hemoglobin is 13.4. Assessment/recommendations: 1.Chest pain. It is atypical with negative stress test 3 months ago. This is likely noncardiac and patient does not have exertional chest pain. Patient can be released from Cardiology standpoint exc ept followup with me next week in the office. If she continues to have symptoms, then we will plan f or coronary angiogram, but if symptoms resolve, especially if she does not have exertional chest pain , we will look for other causes of chest pain. 2.Dyslipidemia. Continue statin. SR/MODL Voice ID: [id number] Report ID: [id number]
[2023-03-29] MEDS ORDERED: HOME MED 1 EA UNK (Simvastatin [Zocor*] 20 MG Tablet) PO SCH (21:00)
[2023-03-29] MEDS ORDERED: ATORVASTATIN 10 MG TAB PO SCH (21:00)
[2023-03-30] MEDS ORDERED: METOPROLOL XL 25 MG TAB PO SCH (06:00)
[2023-03-30] MEDS ORDERED: LEVOTHYROXINE SOD 0.025 MG TAB PO SCH (06:30)
[2023-03-30] MEDS ORDERED: PARoxetine HCL 10 MG TAB PO SCH (09:00)
--- NOTE | 2023-03-30 16:21 | EKG ---
Test Date: 2023-03-28 Test Time: 19:50:37 Equipment Specialist: DEBORAH MEASUREMENT RESULTS: Intervals: Rate: 61 KS: 198 QRSD: 152 QT: 464 QTc: 467 [place]: P: 92 KS: 198 QRS: -32 T: 134 INTERPRETIVE STATEMENTS: Normal sinus rhythm Left axis deviation Left bundle branch block Abnormal ECG Compared to ECG 07/13/2019 08:29:16 Left-axis deviation now present Electronically Signed On 03-30-23 16:18:19 CDT by Justo Messina
== END 2023-03-29 17:07 | disposition home or self-care (01) ==
LOC: ER 19:28 → ERHOLD 22:47 → 4TH 03-29 12:15
PROVIDERS: ADMIT Internal Medicine; ATTEND Internal Medicine
DX: R07.89 Other chest pain (principal); I47.1 Supraventricular tachycardia; K21.9 Gastro-esophageal reflux disease without esophagitis; M19.90 Unspecified osteoarthritis, unspecified site; E78.5 Hyperlipidemia, unspecified; E03.9 Hypothyroidism, unspecified
CPT/HCPCS: 93005; 85025; 80048 ×2; 36415; 80076; 84484 ×4; 71275; 74175; 71045; 99285; Q9967; J7030; G0378

== ENCOUNTER 2024-05-23 13:20 | Emergency (ER) | payer OTHER, MEDICARE ==
--- NOTE | 2024-05-23 15:17 | RAD REPORT ---
EXAM DESCRIPTION: CT - Head C Spine Mpr Wo Con - 05/23/2024 2:31 pm CLINICAL HISTORY: Head and neck injury status post fall. Head and neck pain COMPARISON: None. TECHNIQUE: Computed axial tomography of the head and cervical spine was obtained. Sagittal and coronal reconstruction was performed. All CT scans are performed using dose optimization technique as appropriate and may include automated exposure control or mA/KV adjustment according to patient size. FINDINGS: Mild soft tissue swelling right frontal scalp. 13 millimeter calcification right lateral ventricle. 9 millimeter calcification posterior left falx. No surrounding edema An intracranial bleed is not seen. The ventricles are normal in caliber. No significant hypodensity within the brain. An extra-axial fluid collection is not noted. Fluid within the visualized sinuses and mastoids is not seen A cervical fracture is not visualized. No dislocation is noted. Prominent spondylosis distal cervical spine IMPRESSION: No acute intracranial abnormality is seen. 13 millimeter calcification the right lateral ventricle may represent a choroid plexus papilloma or i ntraventricular meningioma. Nonemergent MRI with contrast is recommended 9 millimeter calcification posterior left vas may represent a meningioma or be idiopathic. This also can be evaluated on the MRI A cervical fracture is not visualized.
--- NOTE | 2024-05-23 15:19 | RAD REPORT ---
EXAM DESCRIPTION: Ribs Right - 05/23/2024 2:36 pm CLINICAL HISTORY: Right rib pain FINDINGS: No fracture is seen
--- NOTE | 2024-05-23 15:51 | ER ---
Nurse's Notes [facility] Name: Alexandra Daniel Age: 79 yrs Sex: Female : 1945 Arrival Date: 05/23/2024 Time: 13:20 Bed 5 Private MD: Diagnosis: Mechanical fall;Forehead contusion Presentation: 05/23 13:55 Chief complaint: Patient states: she tripped, and fell approx 30 mins prior to arrival. ap3 patient is complaining of pain to her right rib area and her right forehead. patient denies LOC and denies being on blood thinners. Coronavirus screen: At this time, the client does not indicate any symptoms associated with coronavirus-19. Ebola Screen: No symptoms or risks identified at this time. Initial Sepsis Screen: Does the patient meet any 2 criteria? No. Patient's initial sepsis screen is negative. Does the patient have a suspected source of infection? No. Patient's initial sepsis screen is negative. Risk Assessment: Do you want to hurt yourself or someone else? Patient reports no desire to harm self or others. Onset of symptoms was May 23, 2024. 13:55 Method Of Arrival: Wheelchair ap3 13:55 Acuity: CARLEEN 3 ap3 13:55 Care prior to arrival: None. Mechanism of Injury: Fall from standing position. Trauma ko1 event details: Injury occurred in the [facility]. Triage Assessment: 13:57 General: Appears in no apparent distress. Behavior is calm, cooperative, appropriate ap3 for age. Pain: Complains of pain in face and right side of forehead, right ribs. Neuro: Level of Consciousness is awake, alert, obeys commands, Oriented to person, place, time, situation, Appropriate for age. Cardiovascular: Patient's skin is warm and dry. Respiratory: Airway is patent Respiratory effort is even, unlabored, Respiratory pattern is regular, symmetrical. Trauma Activation: Not Applicable Physician: ED Physician; Name: ; Notified At: ; Arrived At: Physician: General Surgeon; Name: ; Notified At: ; Arrived At: Physician: Radiology; Name: ; Notified At: ; Arrived At: Physician: Respiratory; Name: ; Notified At: ; Arrived At: Physician: Lab; Name: ; Notified At: ; Arrived At: Historical: - Allergies: 13:55 No Known Allergies; ko1 - PMHx: 13:55 ciliac disease; GERD; High Cholestrol; HYPOGLYCEMIA; ko1 - PSHx: 13:55 Appendectomy; Lumpectomy of breast; right knee; right shoulder; Tonsillectomy; ko1 Cholecystectomy; - Immunization history:: Client reports having NOT received the Covid vaccine. - Infectious Disease History:: Denies. - Immunization history: Last tetanus immunization: - up to date. - Social history:: Smoking status: Patient denies any tobacco usage or history of. - Family history:: not pertinent. Screenin:55 [facility] ED Fall Risk Assessment (Adult) History of falling in the last 3 months, ko1 including since admission Yes- single mechanical fall (1 pt) Confusion or Disorientation No (0 pts) Intoxicated or Sedated No (0 pts) Impaired Gait Yes (1 pt) Mobility Assist Device Used Yes (1 pt) Altered Elimination No (0 pt) Score/Fall Risk Level 3 or more points = High Risk Oriented to surroundings, Maintained a safe environment, Educated pt \T\ family on fall prevention, incl call for assistance when getting out of bed, Assessed \T\ reinforced patient's understanding of fall precautions, Provided non-skid footwear, Hourly rounding (assess needs \T\ fall precautionary measures) done. Abuse screen: Denies threats or abuse. Denies injuries from another. Nutritional screening: No deficits noted. Tuberculosis screening: No symptoms or risk factors identified. Primary Survey: 13:55 NO uncontrolled hemorrhage observed. Breathing/Chest: Spontaneous respiratory effort, ko1 equal unlabored respirations, breath sounds clear bilaterally, regular pattern, symmetrical chest rise and fall. Respiratory effort: spontaneous, unlabored, Breath sounds: clear, bilaterally. Circulation: No external hemorrhage present. Regular and strong central pulse, skin warm/dry/normal color. Disability Pupils are equal, round, reactive to light and accommodation. Client is alert. Exposure/Environment: There is no evidence of uncontrolled external bleeding. Reassessment Breathing: Spontaneous respiratory effort, equal unlabored respirations, breath sounds clear bilaterally, regular pattern with symmetrical chest rise and fall. Respiratory effort Spontaneous Unlabored Breath sounds Clear Respiratory pattern Regular Chest inspection Symmetrical Circulation: No external hemorrhage noted. Regular and strong central pulse, skin warm/dry/normal color. Pulses Palpable Color [place] Temperature Warm Dry Disability: Pupils Pupils are equal, round, reactive to light and accomodation. Assessment: 13:52 General: Appears in no apparent distress. Behavior is calm, cooperative, appropriate ko1 for age. Pain: Complains of pain in right ribs and right side of forehead. Neuro: No deficits noted. Cardiovascular: No deficits noted. Respiratory: No deficits noted. GI: No deficits noted. : No deficits noted. EENT: No deficits noted. Derm: Bruising that is dark purple, on right side of forehead. Musculoskeletal: Swelling present in right side of forehead. Injury Description: Bruise sustained to right side of forehead. 15:01 Reassessment: Patient and/or family updated on plan of care and expected duration. Pain rs5 level reassessed. Patient is alert, oriented x 3, equal unlabored respirations, skin warm/dry/pink. Patient states feeling better. 15:50 Reassessment: Patient and/or family updated on plan of care and expected duration. Pain rs5 level reassessed. Patient is alert, oriented x 3, equal unlabored respirations, skin warm/dry/pink. Patient states feeling better. Patient states symptoms have improved. Vital Signs: 13:55 BP 154 / 72; Pulse 60; Resp 17; Temp 97.7; Pulse Ox 97% ; Weight 71.67 kg; Height 5 ft. ap3 3 in. ; Pain 3/10; 13:58 BP 138 / 91; Pulse 60; Resp 16; Pulse Ox 98% on R/A; ko1 15:55 BP 135 / 88; Pulse 64; Resp 17; Pulse Ox 99% on R/A; rs5 13:55 Body Mass Index 27.99 (71.67 kg, 160.02 cm) ap3 13:55 Pain Scale: Adult ap3 [place] Coma Score: 13:55 Eye Response: spontaneous(4). Motor Response: obeys commands(6). Verbal Response: ko1 oriented(5). Total: 15. Trauma Score (Adult): 13:55 Eye Response: spontaneous(1); Verbal Response: oriented(1); Motor Response: obeys ko1 commands(2); Systolic BP: > 89 mm Hg(4); Respiratory Rate: 10 to 29 per min(4); Diana Score: 15; Trauma Score: 12 ED Course: 13:27 Patient arrived in ED. mg5 13:30 Yao Sheridan MD is Attending Physician. rt 13:49 Macarena Benites, RN is Primary Nurse. ko1 13:55 Patient has correct armband on for positive identification. Bed in low position. Call ko1 light in reach. Side rails up X2. Provided Education on: call light, procedures. Pulse ox on. NIBP on. Door closed. Noise minimized. Lights dimmed. 13:55 Patient maintains SpO2 saturation greater than 95% on room air. ko1 13:57 Triage completed. ap3 14:10 Arm band placed on right wrist. Patient placed in an exam room, on a stretcher, on ko1 pulse oximetry, Patient notified of wait time. 14:10 No provider procedures requiring assistance completed. Patient did not have IV access ko1 during this emergency room visit. 14:10 Thermoregulation: warm blanket given to patient. rs5 14:30 CT Head C Spine In Process Unspecified. EDMS 14:37 Ribs Right XRAY In Process Unspecified. EDMS Administered Medications: No medications were administered Medication: 16:01 VIS not applicable for this client. rs5 Outcome: 15:50 Discharge ordered by . rt 16:01 Discharged to home via wheelchair, with family, rs5 16:01 Condition: stable 16:01 Discharge instructions given to patient, family, Instructed on discharge instructions, follow up and referral plans. Demonstrated understanding of instructions, follow-up care, 16:02 Patient left the ED. rs5 Signatures: Dispatcher [employer] EDMS Ana Pederson RN RN ap3 Macarena Benites, RN RN ko1 Yao Sheridan MD MD rt Cyrus Clark RN RN rs5 Chiara Haddad mg5
--- NOTE | 2024-05-23 15:51 | EDPHYS ---
Physician Documentation [facility] Name: Alexandra Daniel Age: 79 yrs Sex: Female : 1945 Arrival Date: 05/23/2024 Time: 13:20 Bed 5 Private MD: ED Physician Yao Sheridan HPI: 05/23 13:59 This 79 yrs old Female presents to ER via Wheelchair with complaints of Fall Injury. rt 13:59 Patient presents to the ED with trip and fall. Patient reports hitting her head but did rt not have loss of consciousness or neck pain. She reports pain to her right lower rib margin. Pain is mild in in severity, aching in nature, nonradiating, no other aggravating relieving factors.. Historical: - Allergies: 13:55 No Known Allergies; ko1 - PMHx: 13:55 ciliac disease; GERD; High Cholestrol; HYPOGLYCEMIA; ko1 - PSHx: 13:55 Appendectomy; Lumpectomy of breast; right knee; right shoulder; Tonsillectomy; ko1 Cholecystectomy; - Immunization history:: Client reports having NOT received the Covid vaccine. - Infectious Disease History:: Denies. - Immunization history: Last tetanus immunization: - up to date. - Social history:: Smoking status: Patient denies any tobacco usage or history of. - Family history:: not pertinent. ROS: 13:59 Constitutional: Negative for fever, chills, and weight loss, Cardiovascular: Negative rt for chest pain, palpitations, and edema, Respiratory: Negative for shortness of breath, cough, wheezing, and pleuritic chest pain, Abdomen/GI: Negative for abdominal pain, nausea, vomiting, diarrhea, and constipation, Skin: Negative for injury, rash, and discoloration, 13:59 Neuro: Positive for Head injury, negative for loss of consciousness, Exam: 13:59 Constitutional: This is a well developed, well nourished patient who is awake, alert, rt and in no acute distress. Head/Face: Normocephalic, atraumatic. Cardiovascular: Regular rate and rhythm with a normal S1 and S2. No gallops, murmurs, or rubs. Normal PMI, no JVD. No pulse deficits. Respiratory: Lungs have equal breath sounds bilaterally, clear to auscultation and percussion. No rales, rhonchi or wheezes noted. No increased work of breathing, no retractions or nasal flaring. Abdomen/GI: Soft, non-tender, with normal bowel sounds. No distension or tympany. No guarding or rebound. No evidence of tenderness throughout. Skin: Warm, dry with normal turgor. Normal color with no rashes, no lesions, and no evidence of cellulitis. MS/ Extremity: Pulses equal, no cyanosis. Neurovascular intact. Full, normal range of motion. Neuro: Awake and alert, GCS 15, oriented to person, place, time, and situation. Cranial nerves II-XII grossly intact. Motor strength 5/5 in all extremities. Sensory grossly intact. Cerebellar exam normal. Normal gait. 13:59 Head/face: Contusion to the right forehead, no crepitus felt, no lacerations. 13:59 Chest/axilla: Minimal tenderness to the right lower rib margin. Vital Signs: 13:55 BP 154 / 72; Pulse 60; Resp 17; Temp 97.7; Pulse Ox 97% ; Weight 71.67 kg; Height 5 ft. ap3 3 in. ; Pain 3/10; 13:58 BP 138 / 91; Pulse 60; Resp 16; Pulse Ox 98% on R/A; ko1 15:55 BP 135 / 88; Pulse 64; Resp 17; Pulse Ox 99% on R/A; rs5 13:55 Body Mass Index 27.99 (71.67 kg, 160.02 cm) ap3 13:55 Pain Scale: Adult ap3 [place] Coma Score: 13:55 Eye Response: spontaneous(4). Motor Response: obeys commands(6). Verbal Response: ko1 oriented(5). Total: 15. Trauma Score (Adult): 13:55 Eye Response: spontaneous(1); Verbal Response: oriented(1); Motor Response: obeys ko1 commands(2); Systolic BP: > 89 mm Hg(4); Respiratory Rate: 10 to 29 per min(4); Diana Score: 15; Trauma Score: 12 MDM: 13:45 Patient medically screened. rt 16:22 Differential diagnosis: closed head injury, Intracranial hemorrhage. Data reviewed: rt vital signs, nurses notes, radiologic studies. Independent interpretation of the following test(s) in the Emergency Department CT Scan: My interpretation is No intracranial hemorrhage seen on interpretation of CT scan images. Counseling: I had a detailed discussion with the patient and/or guardian regarding the historical points, exam findings, and any diagnostic results supporting the discharge/admit diagnosis, radiology results, Informed patient of possible meningioma findings and recommendations for outpatient MRI. 05/23 13:52 Order name: CT Head C Spine; Complete Time: 15:25 rt 05/23 13:52 Order name: Ribs Right XRAY; Complete Time: 15:25 rt Administered Medications: No medications were administered Disposition Summary: 05/23/24 15:50 Discharge Ordered Notes: Location: Home rt Problem: new rt Symptoms: have improved rt Condition: Stable rt Diagnosis - Mechanical fall rt - Forehead contusion rt Followup: rt - With: Private Physician - When: 2 - 3 days - Reason: Discharge Instructions: - Discharge Summary Sheet rt - Facial or Scalp Contusion rt - Fall Prevention in the Home, Adult rt Forms: - Medication Reconciliation Form rt - Antibiotic Education rt - Prescription Opioid Use rt - Patient Portal Instructions rt - Leadership Thank You Letter rt Signatures: Dispatcher [employer] Ana Bertrand RN RN ap3 Macarena Benites RN RN ko1 Yao Sheridan MD MD rt Cyrus Clark, RN RN rs5
[2024-05-23 16:15] VITALS: TEMP 97.7
[2024-05-23 16:30] VITALS: BP 138/91; O2SAT 98
== END 2024-05-23 16:02 | disposition home or self-care (01) ==
LOC: ER 13:20
DX: S00.83XA Contusion of other part of head, initial encounter (principal); W01.0XXA Fall on same level from slipping, tripping and stumbling without subsequent striking against object, initial encounter; R07.81 Pleurodynia
CPT/HCPCS: 70450; 72125; 99283